=== PATIENT | female | born 1960 | race African-American/Black ===

== ENCOUNTER 2017-12-09 09:50 | Emergency (ER) | payer MEDICARE, OTHER ==
[2017-12-09] MEDS ORDERED: ASPIRIN 81 MG PO STA (10:05)
[2017-12-09 10:17] LABS: Glucose,Whole Blood 110 mg/dL (75-99)
[2017-12-09] MEDS ORDERED: ACETAMINOPHEN TAB 500 MG TAB PO STA (10:29)
[2017-12-09] MEDS ORDERED: ONDANSETRON 4 MG/2 ML VIAL IVP STA (10:29)
[2017-12-09 10:47] LABS: ALT 26 U/L (9-52); AST 35 U/L (14-36); Albumin 4.3 g/dL (3.5-5.0); Alkaline Phosphatase 87 U/L (38-126); Anion Gap 14 mmol/L; Blood Urea Nitrogen 18 mg/dL (7-17); Calcium 9.9 mg/dL (8.4-10.2); Carbon Dioxide 22 mmol/L (22-30); Chloride 106 mmol/L (98-107); Glucose 106 mg/dL (74-99); Lipase 58 U/L (23-300); Magnesium 1.8 mg/dL (1.6-2.3); Potassium 3.8 mmol/L (3.5-5.1); Sodium 142 mmol/L (137-145); Total Bilirubin 0.9 mg/dL (0.2-1.3); Total Protein 7.7 g/dL (6.3-8.2)
[2017-12-09 10:51] LABS: INR 1.1 (<1.2); Prothrombin Time 10.3 sec (9.0-12.0)
[2017-12-09 11:03] LABS: Creatine Kinase 125 U/L (30-135)
[2017-12-09 11:04] VITALS: RESP 18
--- NOTE | 2017-12-09 11:07 | XR ---
EXAMINATION TYPE: XR chest 2V DATE OF EXAM: 12/09/2017 COMPARISON: NONE TECHNIQUE: PA and lateral views submitted. HISTORY: Chest pain FINDINGS: The lungs are clear and there is no pneumothorax, pleural effusion, or focal pneumonia. Postsurgica l changes. Hypertrophic change spine. Arthropathy AC joint. Limited inspiration demonstrates no obvio us overt failure. IMPRESSION: 1. No acute process.
[2017-12-09 11:14] LABS: Creatine Kinase MB 0.9 ng/mL (0.0-2.4); Troponin I <0.012 ng/mL (0.000-0.034)
[2017-12-09 11:27] LABS: Basophils % (A) 0 %; Eosinophils # (A) 0.1 k/uL (0-0.7); Eosinophils % (A) 1 %; HCT 43.1 % (34.0-46.0); HGB 14.3 gm/dL (11.4-16.0); Lymphocytes # (A) 1.7 k/uL (1.0-4.8); Lymphocytes % (A) 26 %; MCH 30.1 pg (25.0-35.0); MCHC 33.2 g/dL (31.0-37.0); MCV 90.7 fL (80.0-100.0); Mean Platelet Volume 7.2; Monocytes # (A) 0.3 k/uL (0-1.0); Monocytes % (A) 5 %; Neutrophils # (A) 4.1 k/uL (1.3-7.7); Neutrophils % (A) 65 %; Platelet Count 278 k/uL (150-450); RBC 4.75 m/uL (3.80-5.40); RDW 12.5 % (11.5-15.5); WBC 6.3 k/uL (3.8-10.6)
--- NOTE | 2017-12-09 11:41 | ED ---
General Adult HPI - General Chief complaint: Chest Pain Stated complaint: unresponsive Source: patient Mode of arrival: wheelchair Limitations: no limitations - History of Present Illness Initial comments: Dictation was produced using [employer] dictation software. please excuse any grammatical, word or spelling errors. Chief Complaint: 57-year-old female past medical history of CABG, coronary artery disease, 14 stents presents with chest pain. History of Present Illness: Patient was in the hospital visiting another family member when she began experiencing chest pain. States the chest pain is a sharp substernal chest pressure. Denies any radiation to the shoulders of the neck. 6 that prior to the onset of her symptoms she was delivered bed nose about her mother who is currently hospitalized. States that the nose has caused her significant distress. Patient's damage assessor is based out of [facility]. She got her CABG done in [place]. Denies any constitutional symptoms. Prior to be delivered that bad news patient states she was in normal health. Patient denies any exacerbating or mitigating factors. The ROS documented in this emergency department record has been reviewed and confirmed by me. Those systems with pertinent positive or negative responses have been documented in the HPI. All other systems are other negative and/or noncontributory. - Related Data Home Medications Medication Instructions Recorded Confirmed Aspirin EC [Ecotrin] 325 mg PO DAILY 12/09/17 12/09/17 Atorvastatin [Lipitor] 80 mg PO DAILY 12/09/17 12/09/17 Clopidogrel [Plavix] 75 mg PO DAILY 12/09/17 12/09/17 Ergocalciferol (Vitamin D2) 50,000 unit PO Q7D 12/09/17 12/09/17 [Vitamin D2] Ezetimibe [Zetia] 10 mg PO DAILY 12/09/17 12/09/17 Lidocaine 5% Patch [Lidoderm] 1 patch TRANSDERM DAILY 12/09/17 12/09/17 Lisinopril-Hctz 20-12.5 mg 1 tab PO DAILY 12/09/17 12/09/17 [Zestoretic 20-12.5] Loratadine [Claritin] 10 mg PO DAILY 12/09/17 12/09/17 Metoprolol Succinate [Toprol Xl] 100 mg PO DAILY 12/09/17 12/09/17 NIFEdipine [Procardia XL] 90 mg PO DAILY 12/09/17 12/09/17 Omeprazole [PriLOSEC] 20 mg PO DAILY 12/09/17 12/09/17 levETIRAcetam [Keppra] 500 mg PO Q12HR 12/09/17 12/09/17 valACYclovir HCL [Valtrex] 1,000 mg PO DAILY 12/09/17 12/09/17 Allergies Allergy/AdvReac Type Severity Reaction Status Date / Time morphine Allergy Rash/Hives Verified 12/09/17 11:15 Penicillins Allergy Rash/Hives Verified 12/09/17 11:15 pentazocine [From Talwin] Allergy Anaphylaxis Verified 12/09/17 11:15 shellfish derived [Shellfish] Allergy Anaphylaxis Verified 12/09/17 11:15 Review of Systems ROS Statement: Those systems with pertinent positive or pertinent negative responses have been documented in the HPI. ROS Other: All systems not noted in ROS Statement are negative. Past Medical History Past Medical History: Hyperlipidemia, Hypertension History of Any Multi-Drug Resistant Organisms: None Reported Past Surgical History: Coronary Bypass/CABG Additional Past Surgical History / Comment(s): 14 cardiac stents, arm skin graft Past Psychological History: No Psychological Hx Reported Smoking Status: Former smoker Past Alcohol Use History: None Reported Past Drug Use History: None Reported General Exam - General Exam Comments Initial Comments: PHYSICAL EXAM: General Impression: Alert and oriented x3, not in acute distress HEENT: Normocephalic atraumatic, extra-ocular movements intact, pupils equal and reactive to light bilaterally, mucous membranes moist. Cardiovascular: Heart regular rate and rhythm, S1&S2 audible, no murmurs, rubs or gallops Chest: Lungs clear to auscultation bilaterally, no rhonchi, no wheeze, no rales Abdomen: Bowel sounds present, abdomen soft, non-tender, non-distended, no organomegaly Musculoskeletal: Pulses present and equal in all extremities, no peripheral edema Motor: Power 5/5 bilaterally, no focal deficits noted Neurological: CN II-XII grossly intact, no focal motor or sensory deficits noted Skin: Intact with no visualized rashes Psych: Tearful Limitations: no limitations Course Vital Signs 12/09/17 12/09/17 12/09/17 09:52 10:43 11:03 Temperature 97.2 F L Pulse Rate 89 59 L 62 Respiratory 20 16 18 Rate Blood Pressure 156/84 149/80 113/60 O2 Sat by Pulse 99 97 97 Oximetry Medical Decision Making - Medical Decision Making ED course: 57-year-old female with extensive cardiac history presents with chest pain symptoms concerning for acute coronary syndrome. Vital signs upon arrival are within acceptable limits. Laboratory evaluation obtained. CBC unremarkable. Coag panel unremarkable. Metabolic panel shows mild hyperglycemia. Cardiac enzymes are negative. X-ray was obtained showing no acute processes. EKG was obtained. Initial EKG showed T-wave inversions diffusely. Repeat EKG was obtained showing no progression.2 sets troponins are negative. Chest x-ray shows no acute processes. Serial EKGs do not show any acute processes. Discussed with patient that we would prefer that she stay for cardiac stress is here in our facility however she states that she has an appointment with her primary care doctor tomorrow and with her damage assessor in 48 hours. Patient lives locally and has access to reduce department should she have any recurrence of symptoms. Discussed with patient that should she develop any chest pain, shortness of breath or paresthesias that she should report immediately to the emergency department. Patient's sisters arrived at bedside and state that they can do that for her. She does request to go home. Patient given aspirin. Patient understands the risk of being discharged given her medical history. Patient's chest pain is atypical however concerning given that patient has extensive cardiac history. EKG Interpretation: A 12 lead EKG was obtained. It was interpreted by myself and attending physician. There is a P wave before every QRS complex. Rate is 66. Rhythm is normal sinus rhythm, MS interval 166, QRS 94, QTC 454. QT is not prolonged. No ST segment depression or elevation. Overall, this EKG is unremarkable - Lab Data Result diagrams: 12/09/17 10:00 12/09/17 10:00 Lab Results 12/09/17 12/09/17 12/09/17 Range/Units 09:57 10:00 10:00 WBC 6.3 (3.8-10.6) k/uL RBC 4.75 (3.80-5.40) m/uL Hgb 14.3 (11.4-16.0) gm/dL Hct 43.1 (34.0-46.0) % MCV 90.7 (80.0-100.0) fL MCH 30.1 (25.0-35.0) pg MCHC 33.2 (31.0-37.0) g/dL RDW 12.5 (11.5-15.5) % Plt Count 278 (150-450) k/uL Neutrophils % 65 % Lymphocytes % 26 % Monocytes % 5 % Eosinophils % 1 % Basophils % 0 % Neutrophils # 4.1 (1.3-7.7) k/uL Lymphocytes # 1.7 (1.0-4.8) k/uL Monocytes # 0.3 (0-1.0) k/uL Eosinophils # 0.1 (0-0.7) k/uL Basophils # 0.0 (0-0.2) k/uL PT (9.0-12.0) sec INR (<1.2) APTT (22.0-30.0) sec Sodium (137-145) mmol/L Potassium (3.5-5.1) mmol/L Chloride (98-107) mmol/L Carbon Dioxide (22-30) mmol/L Anion Gap mmol/L BUN (7-17) mg/dL Creatinine (0.52-1.04) mg/dL Est GFR (CKD-EPI)AfAm (>60 ml/min/1.73 sqM) Est GFR (CKD-EPI)NonAf (>60 ml/min/1.73 sqM) Glucose (74-99) mg/dL POC Glucose (mg/dL) 110 H (75-99) mg/dL POC Glu Branch Director ID Sharp, Crista Calcium (8.4-10.2) mg/dL Magnesium (1.6-2.3) mg/dL Total Bilirubin (0.2-1.3) mg/dL AST (14-36) U/L ALT (9-52) U/L Alkaline Phosphatase (38-126) U/L Total Creatine Kinase 125 (30-135) U/L CK-MB (CK-2) 0.9 (0.0-2.4) ng/mL CK-MB (CK-2) Rel Index 0.7 Troponin I <0.012 (0.000-0.034) ng/mL Total Protein (6.3-8.2) g/dL Albumin (3.5-5.0) g/dL Lipase (23-300) U/L 12/09/17 12/09/17 12/09/17 Range/Units 10:00 10:00 13:17 WBC (3.8-10.6) k/uL RBC (3.80-5.40) m/uL Hgb (11.4-16.0) gm/dL Hct (34.0-46.0) % MCV (80.0-100.0) fL MCH (25.0-35.0) pg MCHC (31.0-37.0) g/dL RDW (11.5-15.5) % Plt Count (150-450) k/uL Neutrophils % % Lymphocytes % % Monocytes % % Eosinophils % % Basophils % % Neutrophils # (1.3-7.7) k/uL Lymphocytes # (1.0-4.8) k/uL Monocytes # (0-1.0) k/uL Eosinophils # (0-0.7) k/uL Basophils # (0-0.2) k/uL PT 10.3 (9.0-12.0) sec INR 1.1 (<1.2) APTT 24.0 (22.0-30.0) sec Sodium 142 (137-145) mmol/L Potassium 3.8 (3.5-5.1) mmol/L Chloride 106 (98-107) mmol/L Carbon Dioxide 22 (22-30) mmol/L Anion Gap 14 mmol/L BUN 18 H (7-17) mg/dL Creatinine 0.72 (0.52-1.04) mg/dL Est GFR (CKD-EPI)AfAm >90 (>60 ml/min/1.73 sqM) Est GFR (CKD-EPI)NonAf >90 (>60 ml/min/1.73 sqM) Glucose 106 H (74-99) mg/dL POC Glucose (mg/dL) (75-99) mg/dL POC Glu Branch Director ID Calcium 9.9 (8.4-10.2) mg/dL Magnesium 1.8 (1.6-2.3) mg/dL Total Bilirubin 0.9 (0.2-1.3) mg/dL AST 35 (14-36) U/L ALT 26 (9-52) U/L Alkaline Phosphatase 87 (38-126) U/L Total Creatine Kinase (30-135) U/L CK-MB (CK-2) (0.0-2.4) ng/mL CK-MB (CK-2) Rel Index Troponin I <0.012 (0.000-0.034) ng/mL Total Protein 7.7 (6.3-8.2) g/dL Albumin 4.3 (3.5-5.0) g/dL Lipase 58 (23-300) U/L Disposition Clinical Impression: Chest pain Disposition: HOME SELF-CARE Instructions: Chest Pain (ED) Additional Instructions: follow up with Dr. Rice tomorrow and Dr. Rubio in 48 hours. Is patient prescribed a controlled substance at d/c from ED?: No Referrals: None,Stated [Primary Care Provider] - 1-2 days Time of Disposition: 14:18
[2017-12-09 14:28] VITALS: BP 152/72; PULSE 81; TEMP 98.9
== END 2017-12-09 14:28 | disposition home or self-care (01) ==
LOC: EC 09:50
DX: R07.2 Precordial pain (principal); R73.9 Hyperglycemia, unspecified; I25.10 Atherosclerotic heart disease of native coronary artery without angina pectoris; E78.5 Hyperlipidemia, unspecified; I10 Essential (primary) hypertension; Z95.1 Presence of aortocoronary bypass graft; Z95.5 Presence of coronary angioplasty implant and graft; Z87.891 Personal history of nicotine dependence; Z79.82 Long term (current) use of aspirin; Z79.02 Long term (current) use of antithrombotics/antiplatelets; Z79.899 Other long term (current) drug therapy; Z88.5 Allergy status to narcotic agent; Z88.0 Allergy status to penicillin; Z91.013 Allergy to seafood
CPT/HCPCS: 36415; 93005; 80053; 82550; 82553; 83690; 83735; 84484; 85025; 85610; 85730; 71046; 99285; 96374; J2405